=== PATIENT | female | born 1995 | race Caucasian/White ===

== ENCOUNTER 2017-06-07 18:00 | Emergency (ER) | payer MEDICAID, OTHER ==
[~2017-06-07] VITALS: Ht 157.5 cm; Wt 52.3 kg
[2017-06-07] MEDS ORDERED: FAMOTIDINE 20 MG/2 ML IVPush ONE (19:00)
[2017-06-07] MEDS ORDERED: SODIUM CHLORIDE FLUSH 10ML SYR IVF ONE (19:00)
[2017-06-07] MEDS ORDERED: KETOROLAC 30 MG/1 ML IVPush ONE (19:00)
[2017-06-07] MEDS ORDERED: PANTOPRAZOLE 40 MG IV IVPush ONE (19:00)
[2017-06-07] MEDS ORDERED: SODIUM CHLORIDE 0.9% 1,000ML IVBOLUS ONE (19:00)
[2017-06-07] MEDS ORDERED: PANTOPRAZOLE 40 MG IV ONE (19:03)
[2017-06-07] MEDS ORDERED: KETOROLAC 30 MG/1 ML ONE (19:04)
[2017-06-07] MEDS ORDERED: FAMOTIDINE 20 MG/2 ML ONE (19:04)
[2017-06-07 19:08] LABS: HEMATOCRIT 41.5 % (34.6-47.8); HEMOGLOBIN 13.8 g/dL (11.7-16.4); WHITE BLOOD COUNT 5.7 x10^3/uL (3.4-10)
[2017-06-07 19:17] LABS: ASPARTATE AMINO TRANSFERASE 11 U/L (15-37); BLOOD UREA NITROGEN 10 mg/dL (7-18)
[2017-06-07 20:53] VITALS: BP 112/76
== END 2017-06-07 20:57 | disposition home or self-care (01) ==
LOC: ED 20:20
DX: K29.00 Acute gastritis without bleeding (principal); Z87.891 Personal history of nicotine dependence
CPT/HCPCS: 36415; 76700; 80053; 81003; 83690; 84703; 85025; 85610; 96361; 96374; 96375; 99285; C9113; J1885; J7030; S0028